=== PATIENT | male | born 1945 | race Caucasian/White ===

== ENCOUNTER 2018-04-16 05:16 | Day surgery (SDC) | payer OTHER ==
[2018-04-16] MEDS ORDERED: PERCOCET 5-3251 EACH PO (09:18)
[2018-04-16] MEDS ORDERED: ZOFRAN ODT4 MG PO (09:18)
[2018-04-16] MEDS ORDERED: MIRALAX17 GM PO (09:18)
[2018-04-16] MEDS ORDERED: NEURONTIN300 MG PO (09:18)
== END 2018-04-16 11:15 | disposition home or self-care (01) ==
LOC: CIR.AMB 05:16
DX: K40.90 Unilateral inguinal hernia, without obstruction or gangrene, not specified as recurrent (principal); K42.0 Umbilical hernia with obstruction, without gangrene